=== PATIENT | female | born 1980 | race Caucasian/White ===

== ENCOUNTER 2019-10-16 06:56 | Day surgery (SDC) | payer BC ==
[~2019-10-16 06:56] MED LIST: Lactated Ringers 1,000 ML IV SCH; Lidocaine 1%/Sod Bicarbonate in NS 8.4% 1 ML Syringe IDERM PRN; Sodium Chloride 0.9% 10 ML Syringe FLUSH PRN
[2019-10-16] MEDS ORDERED: Rocuronium 50 MG/5 ML Vial ONE (07:09)
[2019-10-16] MEDS ORDERED: Midazolam 1 MG/ML 2 ML SDV ONE (07:10)
[2019-10-16] MEDS ORDERED: fentaNYL 250 MCG/5 ML SDV ONE (07:10)
[2019-10-16] MEDS ORDERED: Bupivacaine 0.5% 30 ML SDV ONE (07:10)
[2019-10-16] MEDS ORDERED: Propofol 200 MG/20 ML SDV ONE (07:10)
[2019-10-16] MEDS ORDERED: Lidocaine 1% 4 ML ONE (07:13)
[2019-10-16] MEDS ORDERED: Succinylcholine/Sod PF 100 MG/5 ML SYRINGE IV ONE (07:14)
[2019-10-16] MEDS ORDERED: ceFAZolin 1 GM Vial ONE (08:11)
--- NOTE | 2019-10-16 08:11 | PCM.PREANE ---
Preanesthetic Assessment - Anesthesia/Transfusion/Family Hx Anesthesia History: Prior Anesthesia Without Reaction Type of Anesthesia Reaction: Other (see below) (Patient has TMJ and very limited mouth opening) Family History of Anesthesia Reaction: No Transfusion History: No Prior Transfusion(s) - Review of Systems General: No Symptoms Pulmonary: No Symptoms Cardiovascular: No Symptoms Gastrointestinal: No Symptoms Neurological: No Symptoms Other: Reports: None - Physical Assessment NPO Status Date: 10/15/19 NPO Status Time: 22:30 Vital Signs: Last Vital Signs Temp 98.2 F 10/16/19 07:00 Pulse 65 10/16/19 07:00 Resp 16 10/16/19 07:00 BP 116/80 10/16/19 07:00 Pulse Ox 97 10/16/19 07:00 Height: 1.6 m Weight: 81.193 kg ASA Class: 1 Mental Status: Alert & Oriented x3 Airway Class: Mallampati = 4 Dentition: Reports: Normal Dentition Thyro-Mental Finger Breadths: 3 Mouth Opening Finger Breadths: 1 (Pt has TMJ and very limited mouth opening) ROM/Head Extension: Full Lungs: Clear to Auscultation, Normal Respiratory Effort Cardiovascular: Regular Rate, Regular Rhythm - Lab Values: Laboratory Last Values WBC 9.63 K/mm3 (3.98-10.04) 10/11/19 12:10 RBC 4.93 M/mm3 (3.98-5.22) 10/11/19 12:10 Hgb 13.9 gm/dl (11.2-15.7) 10/11/19 12:10 Hct 43.2 % (34.1-44.9) 10/11/19 12:10 MCV 87.6 fl (79.4-94.8) 10/11/19 12:10 MCH 28.2 pg (25.6-32.2) 10/11/19 12:10 MCHC 32.2 g/dl (32.2-35.5) 10/11/19 12:10 RDW Std Deviation 42.0 fL (36.4-46.3) 10/11/19 12:10 Plt Count 299 K/mm3 (182-369) 10/11/19 12:10 MPV 9.7 fl (9.4-12.3) 10/11/19 12:10 Neut % (Auto) 61.6 % (34.0-71.1) 10/11/19 12:10 Lymph % (Auto) 28.2 % (19.3-51.7) 10/11/19 12:10 [place] % (Auto) 8.3 % (4.7-12.5) 10/11/19 12:10 Eos % (Auto) 1.6 (0.7-5.8) 10/11/19 12:10 Baso % (Auto) 0.2 % (0.1-1.2) 10/11/19 12:10 Neut # (Auto) 5.93 K/mm3 (1.56-6.13) 10/11/19 12:10 Lymph # (Auto) 2.72 K/mm3 (1.18-3.74) 10/11/19 12:10 [place] # (Auto) 0.80 K/mm3 (0.24-0.36) H 10/11/19 12:10 Eos # (Auto) 0.15 K/mm3 (0.04-0.36) 10/11/19 12:10 Baso # (Auto) 0.02 K/mm3 (0.01-0.08) 10/11/19 12:10 Sodium 141 mEq/L (136-145) 10/11/19 12:10 Potassium 4.4 mEq/L (3.5-5.1) 10/11/19 12:10 Chloride 105 mEq/L (98-107) 10/11/19 12:10 Carbon Dioxide 30 mEq/L (21-32) 10/11/19 12:10 Anion Gap 10.4 (5-15) 10/11/19 12:10 BUN 12 mg/dL (7-18) 10/11/19 12:10 Creatinine 1.0 mg/dL (0.55-1.02) 10/11/19 12:10 Est Cr Clr Drug Dosing TNP 10/11/19 12:10 Estimated GFR (MDRD) > 60 mL/min (>60) 10/11/19 12:10 BUN/Creatinine Ratio 12.0 (14-18) L 10/11/19 12:10 Glucose 87 mg/dL (74-106) 10/11/19 12:10 Calcium 9.0 mg/dL (8.5-10.1) 10/11/19 12:10 Total Bilirubin 0.9 mg/dL (0.2-1.0) 10/11/19 12:10 AST 16 U/L (15-37) 10/11/19 12:10 ALT 20 U/L (14-59) 10/11/19 12:10 Alkaline Phosphatase 26 U/L (46-116) L 10/11/19 12:10 Total Protein 6.8 g/dl (6.4-8.2) 10/11/19 12:10 Albumin 3.5 g/dl (3.4-5.0) 10/11/19 12:10 Globulin 3.3 gm/dL 10/11/19 12:10 Albumin/Globulin Ratio 1.1 (1-2) 10/11/19 12:10 HCG, Quant < 1.0 mIU/mL 10/11/19 12:10 Urine Color Yellow (Yellow) 10/11/19 12:10 Urine Appearance Clear (Clear) 10/11/19 12:10 Urine pH 6.0 (5.0-8.0) 10/11/19 12:10 Ur Specific [place] 1.025 (1.005-1.030) 10/11/19 12:10 Urine Protein Negative (Negative) 10/11/19 12:10 Urine Glucose (UA) Negative (Negative) 10/11/19 12:10 Urine Ketones Negative (Negative) 10/11/19 12:10 Urine Occult Blood Negative (Negative) 10/11/19 12:10 Urine Nitrite Negative (Negative) 10/11/19 12:10 Urine Bilirubin Negative (Negative) 10/11/19 12:10 Urine Urobilinogen 0.2 (0.2-1.0) 10/11/19 12:10 Ur Leukocyte Esterase Negative (Negative) 10/11/19 12:10 Urine RBC Not seen /hpf (0-5) 10/11/19 12:10 Urine WBC Not seen /hpf (0-5) 10/11/19 12:10 Ur Squamous Epith Cells Not seen /hpf (0-5) 10/11/19 12:10 Urine Bacteria Not seen /hpf (FEW) 10/11/19 12:10 Urine Mucus Not seen /hpf (FEW) 10/11/19 12:10 COVID-19 PCR Not detected (NOT DETECT) 10/12/19 10:20 - Allergies Allergies/Adverse Reactions: Allergies Allergy/AdvReac Type Severity Reaction Status Date / Time povidone-iodine Allergy Other Verified 10/15/19 11:25 [From Betadine] soap [From Betadine] Allergy Other Verified 10/15/19 11:25 - Acknowledgements Anesthesia Type Planned: General Anesthesia Pt an Appropriate Candidate for the Planned Anesthesia: Yes Alternatives and Risks of Anesthesia Discussed w Pt/Guardian: Yes Pt/Guardian Understands and Agrees with Anesthesia Plan: Yes PreAnesthesia Questionnaire HEENT History: Reports: Impaired Vision, Other (See Below) Other HEENT History: TMJ syndrome Cardiovascular History: Reports: None Respiratory History: Reports: Sleep Apnea, Other (See Below) Other Respiratory History: diagnosed sleep apnea, does not use prescribed CPAP Gastrointestinal History: Reports: None [employer] History: Reports: , Other (See Below) Other OB/BYN History: c section x3, ovulation bleeding, fibroids, dysmenorrhea Musculoskeletal History: Reports: None Neurological History: Reports: None Psychiatric History: Reports: Anxiety, Depression Endocrine/Metabolic History: Reports: None Hematologic History: Reports: None Immunologic History: Reports: None Oncologic (Cancer) History: Reports: None Dermatologic History: Reports: None - Infectious Disease History Infectious Disease History: Reports: None - Past Surgical History Head Surgeries/Procedures: Reports: None Cardiovascular Surgical History: Reports: None Respiratory Surgical History: Reports: None GI Surgical History: Reports: None Female Surgical History: Reports: Section Male Surgical History: Reports: None Endocrine Surgical History: Reports: None Neurological Surgical History: Reports: None Musculoskeletal Surgical History: Reports: None Oncologic Surgical History: Reports: None Dermatological Surgical History: Reports: None - SUBSTANCE USE Smoking Status *Q: Never Smoker Recreational Drug Use History: No - HOME MEDS Home Medications: Home Meds Acetaminophen with Codeine [Tylenol with Codeine #3 Tablet] 1 tab PO Q8H PRN 10/15/19 [History] Docusate Sodium [Colace] 100 mg PO BID PRN 10/15/19 [History] Lactobacillus Combination No.4 [Probiotic] 1 cap PO DAILY 10/15/19 [History] - CURRENT (IN HOUSE) MEDS Current Meds: Current Medications Lactated Ringer's (Ringers, Lactated) 1,000 mls @ 125 mls/hr IV ASDIRECTED JUAN R Stop: 10/16/19 23:00 Last Admin: 10/16/19 07:10 Dose: 125 mls/hr Documented by: Lidocaine/Sodium Bicarbonate (Buffered Lidocaine 1% In Ns 8.4%) 0.25 ml IDERM ONETIME PRN PRN Reason: Prior to IV Start Stop: 10/16/19 18:00 Last Admin: 10/16/19 07:10 Dose: 0.25 ml Documented by: Sodium Chloride (Saline Flush) 10 ml FLUSH ASDIRECTED PRN PRN Reason: Keep Vein Open Stop: 10/16/19 18:00 Discontinued Medications Bupivacaine HCl (Marcaine 0.5%) Confirm Administered Dose 30 ml .ROUTE .STK-MED ONE Stop: 10/16/19 07:11 Fentanyl (Sublimaze) Confirm Administered Dose 250 mcg .ROUTE .STK-MED ONE Stop: 10/16/19 07:11 Lidocaine HCl (Xylocaine-Mpf 1%) Confirm Administered Dose 4 mls @ as directed .ROUTE .STK-MED ONE Stop: 10/16/19 07:14 Lidocaine/Epinephrine (Xylocaine 1% With Epinephrine 1:100,000) Confirm Administered Dose 20 ml .ROUTE .STK-MED ONE Stop: 10/16/19 07:11 Midazolam HCl (Versed 1 Mg/Ml) Confirm Administered Dose 4 mg .ROUTE .STK-MED ONE Stop: 10/16/19 07:11 Propofol (Diprivan 20 Ml) Confirm Administered Dose 200 mg .ROUTE .STK-MED ONE Stop: 10/16/19 07:11 Rocuronium [place] (Zemuron) Confirm Administered Dose 50 mg .ROUTE .STK-MED ONE Stop: 10/16/19 07:10 Sodium Chloride (Normal Saline) Confirm Administered Dose 50 ml .ROUTE .STK-MED ONE Stop: 10/16/19 07:11
[2019-10-16] MEDS ORDERED: Dexamethasone 4 MG/ML 5 ML MDV ONE (08:20)
[2019-10-16] MEDS ORDERED: Ondansetron 4 MG/2 ML SDV ONE (08:20)
[2019-10-16] MEDS: Lidocaine 1% with EPINEPHrine 1:100,000 20 ML MDV ONE ×2 (08:38→08:46)
[2019-10-16] MEDS: Sodium Chloride 0.9% 50 ML SDV ONE ×2 (08:39→08:46)
[2019-10-16] MEDS ORDERED: HYDROmorphone 0.5 MG/0.5 ML Syringe IVPUSH PRN (08:53)
[2019-10-16] MEDS ORDERED: fentaNYL 100 MCG/2 ML SDV IVPUSH PRN (08:53)
[2019-10-16] MEDS ORDERED: Lactated Ringers 1,000 ML ONE (09:01)
[2019-10-16] MEDS ORDERED: Acetaminophen/oxyCODONE 325-5 MG Tab PO PRN (09:24)
[2019-10-16] MEDS ORDERED: Ketorolac 30 MG/ML SDV IVPUSH SCH (09:30)
--- NOTE | 2019-10-16 09:36 | PCM.OPNOTE ---
- General Post-Op/Procedure Note Date of Surgery/Procedure: 10/16/19 Operative Procedure(s): Laparoscopic-assisted vaginal hysterectomy with bilateral salpingectomy Findings: Uterine fibroid was noted. Minimal scarring in the anterior cul-de-sac. Fallopian tubes bilaterally were somewhat atrophic but otherwise normal. Appendix appeared flaccid and noninflamed. Liver edge was unremarkable. No significant anterior or posterior cul-de-sac adhesions were noted. Pre Op Diagnosis: 1. Uterine fibroid. 2. Intermenstrual bleeding. 3. Pelvic pain Post-Op Diagnosis: Same Anesthesia Technique: General ET Tube Other Anesthesia Type: Marcaine 0.5%local10 mL, IV lidocaine with [id number] mL Primary Surgeon: Paramjit Spears Secondary Surgeon: Syed Perez Anesthesia Provider: Sergio Tipton Technician'S Helper: Sarah Hanks Reason Technician'S Helper Was Necessary: Retraction, assistance, patient safety, quality of care. Pathology: Uterus and bilateral fallopian tubes Fluid Replacement, Intraop: 1,200 Output, Urine Amount: 150 Drain/Tube Comments:: Indwelling bladder catheter during surgery only. Complications: None Condition: Good Free Text/Narrative:: Surgery duration: 56 minutes The patient was taken to the operating room placed in supine position on the operating table. She received 2 g of Ancef preoperatively for infection prophylaxis. She had signed consent previously. After adequate anesthesia patient was placed in a dorsal lithotomy position. It should be noted she had sequential compression stockings in place for DVT prophylaxis. A uterine manipulator was placed as was an latex free indwelling bladder catheter. This was done after adequate prepping and draping. The patient was placed in supine position and four laparoscopic port sites were developed. Marcaine 0.5% approximately 3-5 mL was injected at each site. Varies needle was placed and pneumoperitoneum was achieved with 3 L of CO2. Infraumbilical, suprapubic and 2 lateral port sites were developed. Under laparoscopic guidance the upper portion of the hysterectomy was performed. The right infundibulopelvic ligament was elevated and crossclamped using the endoseal computerized cautery device. The round ligament was taken down to the broad ligament. At this time attention was turned to the left side and the left infundibulopelvic ligament and the triple ligament were then taken down in a similar fashion. Broad ligament was taken down to the area of the uterine vasculature. Uterine vasculature was developed in the usual fashion using the cautery system. Both uterine arteries were identified and developed. Vaginal approach was then undertaken. The patient was placed in the dorsal lithotomy position and a weighted speculum was placed in the vagina. The cervix was injected with lidocaine quarter percent with epinephrine 20 mL total. A full circumference incision was made through the epithelium around the cervix. Posterior cul-de-sac was entered without problems. The left uterosacral ligament and then the right uterosacral were taken down using the Enseal vessel closure system. The cardinal ligament and what remained of the uterine vascular vessels and cervical branches of the vessels were managed with the Enseal vessel closure system on each side. Anterior cul-de-sac was then entered and the remaining portion of broad ligament on the right side and a small portion of broad ligament remaining on the left side were then developed in the usual fashion. Uterus was then removed. At this point the uterus was completely removed and sent as specimen. The vaginal cuff was then run with a locked running suture of 0 Monocryl from the 2 o'clock position to the 10 o'clock position. The vagina wa s closed with a running locked suture of 0 Monocryl. Hemostasis was confirmed this time and no bleeding was noted. Laparoscopy was then performed to ensure hemostasis. Pneumoperitoneum was reestablished and the laparoscope was placed. The pelvis was found to be hemostatically intact. There was no evidence of any bowel adhesion to the vaginal cuff area noted. The sleeves were removed under direct visualization and the upper sleeve was removed after reversal of the pneumoperitoneum. Each of these sites were closed with a single interrupted suture of 3-0 Monocryl. They were further approximated with Dermabond skin glue. At this point the patient was awakened from general endotracheal anesthesia. The [place] catheter had been removed by this time. She is discharged from the operating room in good condition.
--- NOTE | 2019-10-16 09:38 | PCM.POSTAN ---
POST ANESTHESIA ASSESSMENT - MENTAL STATUS Mental Status: Somnolent - VITAL SIGNS Vital Signs: Last Vital Signs Temp 97.5 F 10/16/19 09:29 Pulse 65 10/16/19 07:00 Resp 11 L 10/16/19 09:29 BP 112/65 10/16/19 09:29 Pulse Ox 98 10/16/19 09:29 - RESPIRATORY Respiratory Status: Respiratory Rate WNL, Airway Patent, O2 Saturation Stable, Supplemental Oxygen - CARDIOVASCULAR CV Status: Pulse Rate WNL, Blood Pressure Stable - GASTROINTESTINAL GI Status: No Symptoms - PAIN Pain Score: 0 - POST OP HYDRATION Hydration Status: Adequate & Stable
--- NOTE | 2019-10-16 11:27 | PCM48HPAN ---
Post Anesthesia Note - EVALUATION WITHIN 48HRS OF ANESTHETIC Vital Signs in Normal Range: Yes Patient Participated in Evaluation: Yes Respiratory Function Stable: Yes Airway Patent: Yes Cardiovascular Function Stable: Yes Hydration Status Stable: Yes Pain Control Satisfactory: Yes Nausea and Vomiting Control Satisfactory: Yes Mental Status Recovered: Yes Vital Signs: Last Vital Signs Temp 97.4 F 10/16/19 10:30 Pulse 64 10/16/19 11:00 Resp 12 10/16/19 11:00 BP 111/62 10/16/19 11:00 Pulse Ox 94 L 10/16/19 11:00 - COMMENTS/OBSERVATIONS Free Text/Narrative:: No anesthesia complications noted. Comfortable, preparing to be discharged home.
[2019-10-16 12:34] VITALS: PULSE 71
[2019-10-16 13:38] VITALS: BP 105/68
[2019-10-16] MEDS ORDERED: Ibuprofen 600 MG Tab PO PRN (16:00)
== END 2019-10-16 13:31 | disposition home or self-care (01) ==
LOC: JD.SDS 06:56
PROVIDERS: ATTEND Obstetrics & Gynecology
DX: N80.0 Endometriosis of uterus (principal); D25.9 Leiomyoma of uterus, unspecified; N83.8 Other noninflammatory disorders of ovary, fallopian tube and broad ligament; N92.3 Ovulation bleeding; M26.629 Arthralgia of temporomandibular joint, unspecified side; F41.9 Anxiety disorder, unspecified; F32.9 Major depressive disorder, single episode, unspecified; G47.30 Sleep apnea, unspecified; Z11.59 Encounter for screening for other viral diseases; Z98.890 Other specified postprocedural states; Z88.8 Allergy status to other drugs, medicaments and biological substances; Z91.048 Other nonmedicinal substance allergy status; Z79.891 Long term (current) use of opiate analgesic
CPT/HCPCS: 36415; 58552; 80053; 81001; 84702; 85025; 86850; 86900; 86901; 87635; A9270; J0330; J0690; J1100; J1885; J2001; J2250; J2405; J2704; J3010; J3490; J7120; 00944; U0002